=== PATIENT | male | born 1965 | race Caucasian/White ===

== ENCOUNTER 2020-08-05 11:29 | Emergency (ER) | payer OTHER, SELFPAY ==
[2020-08-05 11:34] VITALS: BP 177/108; PULSE 88; RESP 20; TEMP 36.3; O2SAT 99
--- NOTE | 2020-08-05 11:48 | ED.WOUNDLAC ---
HPI - Wound/Laceration General Chief Complaint: Wound/Laceration <José Antonio Oliveira PA-C - Last Filed: 08/05/20 12:20> Stated Complaint: hand lac <REYES Mcclure Last Filed: 08/05/20 12:20> Time Seen by Provider: 08/05/20 11:41 <REYES Mcclure Last Filed: 08/05/20 12:20> Source: patient <REYES Mcclure Last Filed: 08/05/20 12:20> Mode of arrival: ambulatory <REYES Mcclure Last Filed: 08/05/20 12:20> Limitations: no limitations <REYES Mcclure Last Filed: 08/05/20 12:20> History of Present Illness HPI narrative: Patient presents with chief complaint of laceration to the dorsal aspect of his left hand that he sustained while using an [employer] knife at home cutting himself accidentally. Patient reports that he applied pressure dressing to the wound, but still noticed some bleeding. Patient still has full sensation and range of motion to his hand. Patient denies any injuries. Patient is unsure if he is up-to-date on his tetanus vaccination. Patient denies any other injuries. <José Antonio Oliveira PA-C - Last Filed: 08/05/20 12:20> Related Data Allergies/Adverse Reactions: Allergies Allergy/AdvReac Type Severity Reaction Status Date / Time No Known Allergies Allergy Verified 08/05/20 11:48 <REYES Mcclure Last Filed: 08/05/20 12:20> Review of Systems Review of Systems: Narrative: CONSTITUTIONAL: Denies fever, chills, or sweats. EYES: Denies visual changes, redness, or discharge. ENT: Denies rhinorrhea, congestion, sore throat, or otalgia. CARDIOVASCULAR: Denies chest pain, palpitations, or edema. RESPIRATORY: Denies cough or dyspnea. GASTROINTESTINAL: Denies abdominal pain, nausea, vomiting, or diarrhea. GENITOURINARY: Denies dysuria or hematuria. SKIN: Reports laceration denies rash or itching. MUSCULOSKELETAL: Denies back pain, joint pain, or myalgia. NEUROLOGIC: Denies headache, numbness, dizziness, or weakness. PSYCHIATRIC: Denies anxiety or depression. <José Antonio Oliveira PA-C - Last Filed: 08/05/20 12:20> PMFSH Social History Social History: Social History Smoking status: Heavy tobacco smoker Alcohol intake: current Gender identity (if verbalized by the patient): Male <José Antonio Oliveira PA-C - Last Filed: 08/05/20 12:20> Exam Narrative: Exam Narrative: GENERAL: Well-appearing, well-nourished, and in no acute distress. HEAD: Normocephalic, atraumatic. EYES: PERRLA and EOMI. CHEST: Clear to auscultation. No respiratory distress. No wheezes rales or rhonchi HEART: Regular rate and rhythm. Not tachycardic. EXTREMITIES: Normal range of motion. No edema. SKIN: 2.5cm laceration between 1st and 2nd digit of left hand with some bleeding. Warm, dry, no rash. NEURO: No focal deficits. Alert and oriented x3. PSYCH: Normal mood and affect. <José Antonio Oliveira PA-C - Last Filed: 08/05/20 12:20> Course Vital Signs Vital signs: Vital Signs Temperature 97.4 F L 08/05/20 11:34 Pulse Rate 88 08/05/20 11:34 Respiratory Rate 20 08/05/20 11:34 Blood Pressure 177/108 H 08/05/20 11:34 Pulse Oximetry 99 08/05/20 11:34 Temperature 97.4 F L 08/05/20 11:34 Pulse Rate 85 08/05/20 12:31 Respiratory Rate 16 08/05/20 12:31 Blood Pressure 162/112 H 08/05/20 12:31 Pulse Oximetry 99 08/05/20 12:31 <José Antonio Oliveira PA-C - Last Filed: 08/05/20 12:20> Vital Signs Temperature 97.4 F L 08/05/20 11:34 Pulse Rate 88 08/05/20 11:34 Respiratory Rate 20 08/05/20 11:34 Blood Pressure 177/108 H 08/05/20 11:34 Pulse Oximetry 99 08/05/20 11:34 Temperature 97.4 F L 08/05/20 11:34 Pulse Rate 85 08/05/20 12:31 Respiratory Rate 16 08/05/20 12:31 Blood Pressure 162/112 H 08/05/20 12:31 Pulse Oximetry 99 08/05/20 12:31 <Cortney Marin MD - Last Filed: 08/05/20 15:34> Procedures Laceration Laceration 1: Site: hand <José Antonio Oliveira PA-C - Last Filed:
[2020-08-05] MEDS: TETANUS,DIPHTHERIA,AC PERTUSSIS ADULT (0.5 ML) BOOSTRIX IM (12:07)
[2020-08-05 12:31] VITALS: BP 162/112; PULSE 85; RESP 16; O2SAT 99
== END 2020-08-05 12:34 | disposition home or self-care (01) ==
PROVIDERS: Emergency Provider General Practice; PCP Family Medicine
DX: S61.412A Laceration without foreign body of left hand, initial encounter (principal); Z23 Encounter for immunization; F17.200 Nicotine dependence, unspecified, uncomplicated; W27.0XXA Contact with workbench tool, initial encounter
CPT/HCPCS: 12001; 90471; 90715; 99282

== ENCOUNTER 2024-10-27 09:45 | Outpatient (CLI) | payer OTHER, SELFPAY ==
--- NOTE | ~2024-10-27 | CT_ITS ---
CT Scan of the Chest without Contrast: Clinical Indication: Lung cancer screening, nicotine dependence Technique: Contiguous sections were acquired throughout the chest without intravenous contrast. Dose reduction technique was used on this scan by utilizing automated exposure control and iterative recon struction technique. The dose-length product (DLP) was 106.53 mGy-cm. Findings: There is no evidence of any significant mediastinal, hilar or axillary lymphadenopathy. The mediastin al soft tissues appear normal. There is no evidence of pleural or pericardial effusion. The lungs are clear. No pulmonary nodules or infiltrates are noted. Images through the upper abdomen reveal no abnormalities. Impression: Lung RADS 1: Negative. 12 month follow-up screening CT advised. Reviewed, dictated and finalized at location . Impression: Lung RADS 1: Negative. 12 month follow-up screening CT advised.
--- OUTSIDE RECORDS SUMMARY | 2024-10-27 09:51 | XMS_ITS | CONTINUITY OF CARE DOCUMENT ---
Author Name albin albin Address Unknown Organization [facility] Address [address] [facility] [address] [place] [address] Phone [phone] Care Team Providers Care Forming Acid Dumper Name Role Phone Yvon Bethea MD Unavailable DELICIA ADAME MD Unavailable [phone] DELICIA ADAME MD Unavailable PROBLEMS Condition Status Date Provider Notes Cardiology examination active Yvon Bethea MD Diabetes, Type 2 active Yvon Bethea MD Hyperlipidemia active Yvon Bethea MD Family history of CAD active Yvon Echavarria CAD active Yvon Bethea MD Hypertension active Yvon Bethea MD Frequent PVC active Yvon Bethea MD Tobacco abuse active Yvon Bethea MD Edema--L leg active Yvon Bethea MD ENCOUNTERS Date Type Provider Location Encounter Diag nosis - In-person encounter Office Visit Yvon Bethea MD, [facility] Edema--L leg - In-person encounter Office Visit Yvon Bethea MD [facility] - In-person encounter Office Visit Yvon Bethea MD [facility] Tobacco abuse - In-person encounter Office Visit Yvon Bethea MD [facility] - In-person encounter Office Visit Yvon Bethea MD [facility] Cardiology examinationDiabetes, Type 2HyperlipidemiaFamily history of CADCADHypertensionFrequent PVC VITAL SIGNS Date Observation Value Provider Body Mass Index (Ratio) 27.37 kg/m2 Nunu Bethea MD blood pressure, cuff size regular Br nikolas Smith blood pressure, diastolic 95 mm[Hg] Br nikolas Smith blood pressure, systolic 152 mm[Hg] Daniela Smith pulse rate 97 /min Abigail syed oxygen saturation, oximetry 97 % Abigail Smith weight E&M 180 [lb_av] Abigail Dominguez s height E&M 68 [in_i] Abigail Dominguez s Body Mass Index (Ratio) 28.73 kg/m2 Tu quintana [facility] blood pressure, diastolic 105 mm[Hg] Lobito tavareza [facility] blood pressure, systolic 164 mm[Hg] Geri la [facility] blood pressure, cuff size regular Lobito herring [facility] oxygen saturation, oximetry 99 % Sol [facility] pulse rate 73 /min Sol [facility] weight E&M 189 [lb_av] Sol [facility] height E&M 68 [in_i] Sol [facility] Body Mass Index (Ratio) 28.28 kg/m2 Nunu Bethea MD blood pressure, diastolic 100 mm[Hg] Venice zbegerman Oconnell blood pressure, systolic 156 mm[Hg] Liana casa Oconnell oxygen saturation, oximetry 98 % Val Ruiz respiratory rate E&M 12 /min Val Oconnell pulse rate 69 /min Val Oconnell blood pressure, cuff size regular [place] Oconnell weight E&M 186 [lb_av] Val Oconnell height E&M 68 [in_i] Val Oconnell blood pressure, cuff size regular Koki lerdipti Leonides blood pressure, diastolic 88 mm[Hg] Va lerdipti Leonides blood pressure, systolic 148 mm[Hg] Veronica regandipti Oropezan pulse rate 72 /min Nirmala Leonides respiratory rate E&M 16 /min Nirmala Leonides oxygen saturation, oximetry 95 % Nirmala Lenoides height E&M 68 [in_i] Nirmala Leonides Body Mass Index (Ratio) 29.34 kg/m2 Nunu Bethea MD blood pressure, cuff size regular Ke rri Thompson blood pressure, diastolic 86 mm[Hg] Ke rri Jeremieuenenfelder blood pressure, systolic 124 mm[Hg] Mallory Mackay oxygen saturation, oximetry 97 % Rand Mackay respiratory rate E&M 12 /min Rand dhaliwal pulse rate 41 /min Rand puenteer weight E&M 193 [lb_av] Rand puenteer height E&M 68 [in_i] Rand puenteer ALLERGIES Allergy Name Onset Date Reaction Criticality Status STATINS Myalgias Myalgias High Criticality a ctive RESULTS Date Observation Value Provider Reference Range Interpretation Location 9 hemoglobin A1C, blood, as % of total hemoglobin 6.1 % OF TOTAL HGB [facility] <5.7 High 9 C-reactive protein, by highly sensitive test 0.7 mg/L [facility] <1.0 LDL Size 223.2 Angstrom [facility] >222.9 LDL particle concentration (lipoprotein panel), risk categories correspond to NCEP categories for LDL cholesterol (on a percentile equivalent basis) 1320 nmol/L [facility] <1138 High cholesterol, non-HDL, total 129 MG/DL (CALC) [facility] <130 cholesterol/HDL ratio, serum, percent 3.9 calc [facility] <5.0 LDL cholesterol, serum 113 MG/DL (CALC) [facility] <100 High triglyceride, serum, fasting 75 mg/dL [facility] <150 HDL cholesterol, serum 44 mg/dL [facility] >39 cholesterol, serum 173 mg/dL [facility] <200 microalbumin/crea tinine ratio, urine 9 MG/G CREAT [facility] <30 Normal microalbumin/tota l urine volume 4 mg/L [facility] Units converted. See lab report for original value. Normal creatinine, random, urine 47 mg/dL [facility] 20-320 Normal HISTORY OF MEDICATION USE Medication Status Instructions Dates Provider Indications Com ments atorvastatin 40 mg tablet active Yvon Bethea MD losartan 25 mg tablet active TAKE 1 TABLET BY MOUTH ONCE DAILY Bryan Davis NP Vitamin B-1 (mononitrate) 100 mg tablet active TAKE 1 TABLET BY MOUTH EVERY DAY DIRECTED FOR 90 DAYS Bryan Davis NP folic acid 1 mg tablet active Bryan Davis NP quetiapine 150 mg tablet active Bryan Davis NP Repatha SureClick 140 mg/mL pen injector active INJECT 140MG SUBCUTANEOUS EVERY 2 WEEKS Bryan Davis NP ezetimibe 10 mg tablet active Take 1 tablet by mouth once a day Sol Carl Zetia 10 mg tablet active TAKE 1 TABLET BY MOUTH DAILY Yvon Bethea MD levocetirizine 5 mg tablet completed TAKE 1 TABLET BY MOUTH EVERY DAY DIRECTED - Sol Carl fluticasone propionate 50 mcg/actuation spray,suspension active once daily Nirmala Oropezan metformin (Glucophage XR) 500 mg tablet extended release 24 hr active take 1 pill a day Rand Mackay atorvastatin 40 mg tablet completed TAKE 1 TABLET EVERY DAY AT NIGHT - Bryan Davis NP SOCIAL HISTORY Date Observation Value Provider quit smoking, stage ready Yvon avila MD personal history of marijuana use yes Yvon Bethea MD alcohol use, average drinks per day 1 /d Yvon Bethea MD alcohol use, type Wine Yvon hahn MD alcohol use yes Yvon Bethea MD smoking, year quit 2022 Yvon medrano MD smoking, date started 2023 Yvon Bethea MD smoking history, total pack/day 1 Yvon Bethea MD cigarette use yes Yvon Echavarria smoking status Current every day smoker U oscar Bethea MD personal history of marijuana use yes Bryan Davis NP alcohol use, average drinks per day 1 /d Bryan Davis NP alcohol use, type Wine Bryan kinney NP alcohol use yes Bryan Davis NP smoking, year quit 2022 Bryan London NP smoking, date started 2023 Bryan Davis NP smoking history, total pack/day 1 Bryan Davis NP cigarette use yes Bryan Davis NP smoking status Current every day smoker V chirs Davis NP smoking, date started 2023 Sarah Oconnell smoking history, total pack/day 1 Val Oconnell personal history of marijuana use yes Val Oconnell alcohol use, average drinks per day 1 /d Val Oconnell alcohol use, type Wine Val Shahram stephens alcohol use yes Val Oconnell smoking, year quit 2022 Val Rosemary lopez cigarette use yes Val Anish smoking status Current every day smoker L marcusgerman Oconnell personal history of marijuana use yes Yvon Bethea MD alcohol use, average drinks per day 1 /d Yvon Bethea MD alcohol use, type Wine Yvon hahn MD alcohol use yes Yvon Bethea MD smoking, year quit 2022 Yvon medrano MD cigarette use yes Yvon Echavarria smoking status Former smoker Yvon Bethea MD personal history of marijuana use yes Yvon Bethea MD alcohol use, type Wine Yvon hahn MD alcohol use, average drinks per day 1 /d Yvon Bethea MD alcohol use yes Yvon Bethea MD smoking, year quit 2022 Yvon medrano MD cigarette use yes Yvon Echavarria smoking status Former smoker Yvon Bethea MD FUNCTIONAL STATUS Date Observation Value Provider HRA, CV Assess/Plan, Angina (inactive) Management Plan continue current therapy Yvon Bethea MD HRA, CV Assess/Plan, Angina (inactive) Management Plan continue current therapy Bryan Davis NP HRA, CV Assess/Plan, Angina (inactive) Management Plan continue current therapy Yvon Bethea MD HRA, CV Assess/Plan, Angina (inactive) Management Plan continue current therapy Yvon Bethea MD INSURANCE PROVIDERS Payer name Policy type / Coverage type [place] red green party ID [facility] [id number] ADVANCE DIRECTIVES Name Date DISCUSSED - NO DECISION MADE TREATMENT PLAN Date Name Performer Cardiology: H is updated medication list for this problem includes: Losartan 25 Mg Tablet (Losartan) ..... Take 1 tablet by mouth once daily Metformin (glucophage Xr) 500 Mg Tablet Extended Release 24 Hr (Metformin (glucophage xr)) ..... Take 1 pill a day Yvon Bethea MD Cardiology:The Patie nt was reencouraged to stop smoking. Yvon Bethea MD Cardiology:LDL at go al H is updated medication list for this problem includes: Atorvastatin 40 Mg Tablet (Atorvastatin Zetia 10 Mg Tablet (Ezetimibe) ..... Take 1 tablet by mouth daily Yvon Bethea MD Cardiology:check maru ous reflux test Yvon Bethea MD Cardiology:LDL at go al C ontinue medical therapy. O K to continue statin A symtpomatic T his visit has been a part of the consistent, comprehensive, and ongoing management of the chronic medical condition(s) listed above for the patient. Yvon Bethea MD Cardiology:The Patient was reenc ouraged to stop smoking. Bryan Davis NP Cardiology Bryan Melissa P Cardiology:A1c 6.1% Bryan mendez NP Cardiology:Stable. C ontinue medical therapy. D /w him tobacco cessation T his visit has been a part of the consistent, comprehensive, and ongoing management of the chronic medical condition(s) listed above for the patient. Bryan Davis NP Cardiology:start los dominguez 25mg once daily given his status as prediabetic This visit has been a part of the consistent, comprehensive, and ongoing management of the chronic medical condition(s) listed above for the patient. BP today: 164/105 P rior BP: 156/100 (04/02/2024) Labs Reviewed: C hol: 173 (04/10/2024) HDL: 44 (04/10/2024) LDL: 113 MG/DL (CALC) (04/10/2024) T (04/10/2024) Bryan Davis NP Cardiology:statin st opped due to myalgias W ill start [place], needs better lipid control to maximize his risk prevention LDL 113 on 20mg atorvastatin L P(a) 177 A poB 92 L DL particle number [id number] The following medications were removed from the medication list: Atorvastatin 40 Mg Tablet (Atorvastatin) ..... Take 1 tablet every day at night His updated medication list for this problem includes: [place] Sureclick 140 Mg/ml Pen Injector (Evolocumab) ..... Inject 140mg subcutaneous every 2 weeks Ezetimibe 10 Mg Tablet (Ezetimibe) ..... Take 1 tablet by mouth once a day Zetia 10 Mg Tablet (Ezetimibe) ..... Take 1 tablet by mouth daily Bryan Davis NP Cardiology Yvon Bethea MD Cardiology Yvon Bethea MD Cardiology:Bp retake n to be 139/91 S tates this is better controlled at home BP today: 156/100 P rior BP: 148/88 (01/02/2024) Yvon Bethea MD Cardiology: H is updated medication list for this problem includes: Atorvastatin 20 Mg Tablet (Atorvastatin) ..... Take 1 pill a day This visit has been a part of the consistent, comprehensive, and ongoing management of the chronic medical condition(s) listed above for the patient. Yvon Bethea MD Cardiology:per pcp Yvon Bethea MD Cardiology:The Patie nt was reencouraged to stop smoking. S tarted smoking again Yvon Bethea MD Cardiology:Stable. C ontinue medical therapy. D /w him tobacco cessation W Ill obtain an advanced lipid panel to risk stratify him for future events.. T his visit has been a part of the consistent, comprehensive, and ongoing management of the chronic medical condition(s) listed above for the patient. Yvon Bethea MD Cardiology Yvon Bethea MD Cardiology:stable, n o sob or cp A SCVD risk 10.4% Yvon Bethea MD Cardiology:The patie ericka is on a statin for pimary prevention and management of cardiovascular disease. H is updated medication list for this problem includes: Atorvastatin 20 Mg Tablet (Atorvastatin) ..... Take 1 pill a day Yvon Bethea MD Cardiology:Encourage d exercise and further dietary sodium reduction. B P today: 148/88 P rior BP: 124/86 (11/13/2023) Yvon Bethea MD Cardiology:monitor pending Yvon Bethea MD Cardiology:The luis carlos barnett is on a statin for pimary prevention and management of cardiovascular disease. H is updated medication list for this problem includes: Atorvastatin 20 Mg Tablet (Atorvastatin) ..... Take 1 pill a day Yvon Bethea MD Cardiology Yvon Bethea MD Cardiology:on metformin Yvon avila MD Cardiology: B P today: 124/86 Yvon Bethea MD Cardiology:Frequent, check 24 hr holter Yvon Bethea MD Cardiology:ASCVD ris k 10.4% T he patient is on a statin for pimary prevention and management of cardiovascular disease. H e has not been taking statin daily, encouraged him to take it daily a symptomatic Yvon Bethea MD Date Name Venous Doppler Bilat eral LE - Reflux LIPID PANEL COMPREHENSIVE METABO LIC PANEL, W/EGFR Microalb/Creatinine Urine, Random HEMOGLOBIN A1c [facility] Advanced Li pid Panel with Inflammation ([facility]) Complete Echo Holter Monitor 24 Hr HISTORY OF PROCEDURES Procedure Date Procedure Name Provider Procedure Notes S tatus Tobacco user + tobac co cessation intervention Yvon Bethea MD completed Complex e/m visit add on Yvon Bethea MD completed Complex e/m visit add on Yvon Bethea MD completed Complex e/m visit add on Yvon Bethea MD completed Complex e/m visit add on Yvon Bethea MD completed EKG Yvon Bethea MD completed
== END 2024-10-27 09:46 | disposition home or self-care (01) ==
PROVIDERS: PCP Family Medicine; Visit Provider Family Medicine
DX: Z12.2 Encounter for screening for malignant neoplasm of respiratory organs (principal); F17.210 Nicotine dependence, cigarettes, uncomplicated
CPT/HCPCS: 71271